=== PATIENT | male | born 1985 | race Caucasian/White ===

== ENCOUNTER 2022-01-26 01:11 | Emergency (ER) | payer OTHER ==
[2022-01-26] MEDS ORDERED: Lidocaine 1% with EPINEPHrine 1:100,000 10 ML MDV INJECT ONE (01:37)
[2022-01-26] MEDS ORDERED: Bupivacaine 0.5% 10 ML SDV INJECT ONE (01:37)
== END 2022-01-26 02:45 | disposition home or self-care (01) ==
LOC: JD.ED 01:11
DX: K08.89 Other specified disorders of teeth and supporting structures (principal); F17.210 Nicotine dependence, cigarettes, uncomplicated
CPT/HCPCS: 64400; 99282-25; J3490